=== PATIENT | female | born 1995 | race Caucasian/White ===

== ENCOUNTER 2017-12-24 21:57 | Emergency (ER) | payer SELFPAY ==
[~2017-12-24] VITALS: Ht 167.6 cm; Wt 70.3 kg
[2017-12-24 22:09] VITALS: BP 136/82
--- NOTE | 2017-12-25 04:26 | ED.ADGEN ---
Past History Past Medical History: Diabetes Past Surgical History: No Surgical History Alcohol Use: Occasionally Drug Use: None Adult General Chief Complaint Chief Complaint Soft tissue infection right lower abdominal wall HPI HPI Patient is independent diabetic presents with 2 x 3 cm patch of erythema swelling and induration over right lower quadrant, while at site of previous insulin cannula insertion. No fluctuance, pointing, or drainage area. Patient does report pain surrounding erythema. No fevers chills, nausea vomiting or sweats. No history of MRSA. Prescribed doxycycline by local physician. Patient has had one dose. Blood sugar greater than 200 are to ED arrival. No dizziness lightheadedness, nausea or DKA symptoms. No other symptoms or complaints.[] Review of Systems Review of Systems Review symptoms as per history of present illness. All other review symptoms are negative All other systems were reviewed and found to be within normal limits, except as documented in this note. Allergies Allergies Allergies Coded Allergies Type Severity Reaction Last Updated Verified No Known Drug Allergies 12/24/17 No Physical Exam Physical Exam Constitutional: Well developed, well nourished, no acute distress, non-toxic appearance. [] HENT: Normocephalic, atraumatic, bilateral external ears normal, oropharynx moist, no oral exudates, nose normal. [] Eyes: PERRLA, EOMI, conjunctiva normal. [] Lungs & Thorax: Bilateral breath sounds clear to auscultation. [] Abdomen: 2 x 3 cm patch of erythema swelling and induration over right lower quadrant, while at site of previous insulin cannula insertion. No fluctuance, pointing, or drainage area or surrounding erythema. [] Neurologic: Alert and oriented X 3, normal motor function, normal sensory function, no focal deficits noted. [] Psychologic: Affect normal, judgement normal, mood normal. [] Current Patient Data Vital Signs Vital Signs Date Time Temp Pulse Resp B/P (MAP) Pulse Ox O2 Delivery O2 Flow Rate FiO2 12/24/17 22:09 99.1 82 18 100 Room Air Lab Results Laboratory Tests Test 12/24/17 22:30 Glucose (Fingerstick) 142 mg/dL (70-99) H EKG EKG [] Radiology/Procedures Radiology/Procedures [] Course & Med Decision Making Course & Med Decision Making Pertinent Labs and Imaging studies reviewed. (See chart for details) [No DKA symptoms, soft tissue infection abdomen, early abscess. Recommend continued doxycycline, warm compresses and close follow-up. Return precautions reviewed. Patient verbalizes understanding agreement discharge instructions prior to departure] Final Impression Final Impression [1. soft tissue infection abdominal wall] Kiesha Disclaimer [employer] Disclaimer This electronic medical record was generated, in whole or in part, using a voice recognition dictation system. JESSICA MENDOZA DO Dec 25, 2017 04:25
== END 2017-12-24 22:35 | disposition home or self-care (01) ==
LOC: ER 21:57
DX: L08.89 Other specified local infections of the skin and subcutaneous tissue (principal); R23.4 Changes in skin texture; E11.9 Type 2 diabetes mellitus without complications
CPT/HCPCS: 82947; 99283